=== PATIENT | female | born 1945 | race Caucasian/White ===

== ENCOUNTER 2020-12-04 17:56 | Inpatient (IN) | payer MEDICARE, MEDICAID ==
[~2020-12-04] VITALS: Ht 167.6 cm; Wt 57.1 kg
[~2020-12-04 17:56] MED LIST: AMIO200T68 PO; ASPI-1444 PO; ATOR20TA86 PO; CALC-840 PO; DOCU-275 PO; FURO40 PO; LEVO75 PO; LOSA25TA21 PO; METO25 PO; PANT-31 PO; POTA20TA83 PO; SPIR25 PO; THIA100T80 PO
[2020-12-04 19:57] LABS: BASOPHILS % (AUTO) 0.9 % (0.0-2.0); EOSINOPHILS % (AUTO) 0.7 % (1.0-6.0); HEMATOCRIT 35.3 % (36-46); HEMOGLOBIN 11.5 g/dL (12.0-16.0); LYMPHOCYTES # (AUTO) 0.9 K/uL (1.0-4.8); LYMPHOCYTES % (AUTO) 11.2 % (22.0-44.0); MEAN CORPUSCULAR HEMOGLOBIN 30.1 pg (26.0-34.0); MEAN CORPUSCULAR HGB CONC 32.4 G/dL (31.0-37.0); MEAN CORPUSCULAR VOLUME 93 fL (80-100); MONOCYTES # (AUTO) 0.4 K/uL (0.1-1.0); NEUTROPHILS # (AUTO) 6.9 K/uL (1.8-7.7); NEUTROPHILS % (AUTO) 82.2 % (40.0-70.0); PLATELET COUNT (AUTO) 328 K/uL (150-450); RED CELL DISTRIBUTION WIDTH 17.1 % (11.5-14.5)
[2020-12-04 20:06] LABS: ANION GAP 13 mmol/L (8-16); CALCIUM, TOTAL 8.9 mg/dL (8.8-10.5); CARBON DIOXIDE 24 mmol/L (22-29); CHLORIDE 104 mmol/L (98-107); CREATININE 0.73 mg/dL (0.60-1.30); GLOMERULAR FILTR. RATE CALC > 60 mL/min (>60); GLUCOSE,RANDOM 100 mg/dL (70-110); POTASSIUM 3.9 mmol/L (3.5-5.1); SODIUM SERUM 141 mmol/L (136-145); UREA NITROGEN, BLOOD 11 mg/dL (7-18)
[2020-12-04 20:13] LABS: ALANINE AMINOTRANSFERASE 12 U/L (12-78); ALBUMIN 3.8 g/dL (3.4-5.0); ALKALINE PHOSPHATASE 69 U/L (46-116); ASPARTATE AMINOTRANSFERASE 14 U/L (15-37); BILIRUBIN,TOTAL 0.3 mg/dL (0.1-1.0); CREATINE KINASE, TOTAL ONLY 60 U/L (26-192); TOTAL PROTEIN, SERUM 7.3 g/dL (6.4-8.2)
[2020-12-04 20:23] LABS: B-TYPE NATRIURETIC PEPTIDE 284 pg/mL (0-100)
[2020-12-04] MEDS ORDERED: LORazepam 2 MG TABLET PO PRN (20:45)
[2020-12-04] MEDS ORDERED: ACETAMINOPHEN 325 MG TABLET PO PRN (20:45)
[2020-12-04] MEDS ORDERED: ONDANSETRON HCL 4 MG/2 ML VIAL IVP PRN (20:45)
[2020-12-04 21:23] LABS: COVID AG,FIA SOURCE NASOPHARYNGEAL
[2020-12-04 22:12] LABS: APPEARANCE,URINE CLEAR (CLEAR); BILIRUBIN,URINE NEGATIVE (NEGATIVE); GLUCOSE, URINE (UA) NEGATIVE (NEGATIVE); KETONES,URINE NEGATIVE (NEGATIVE); LEUKOCYTE ESTERASE ,URINE NEGATIVE (NEGATIVE); OCCULT BLOOD,URINE NEGATIVE (NEGATIVE); PROTEIN,URINE NEGATIVE (NEGATIVE); UROBILINOGEN,URINE 0.2 mg/dL (<=1.0)
[2020-12-04 22:21] LABS: NITRATE,URINE POSITIVE (NEGATIVE)
[2020-12-04 22:22] LABS: BACTERIA,URINE Many /HPF (None Seen); RBC,URINE 0-2 /HPF (0-2); SQUAMOUS EPITHELIAL CELL,UR Few /LPF (None Seen); WBC,URINE 0-2 /HPF (0-5)
[2020-12-04 22:28] LABS: THYROID STIMULATING HORMONE 13.64 uIU/mL (0.36-3.74)
[2020-12-04] MEDS ORDERED: SODIUM CHLORIDE 0.9% 100 ML ONE (22:53)
[2020-12-04] MEDS ORDERED: IOVERSOL 350 MG/ML 100 ML VIAL ONE (22:53)
[2020-12-04] MEDS ORDERED: HEPARIN SODIUM,PORCINE 5,000 UNITS/ML VIAL IVP PRN ×2 (23:45)
[2020-12-04] MEDS ORDERED: HEPARIN SODIUM,PORCINE 5,000 UNITS/ML VIAL IVP ONE (23:45)
[2020-12-04 23:48] VITALS: BP 162/75
[2020-12-05] VITALS (7 sets, daily range): BP systolic 102–153; BP diastolic 51–76
[2020-12-05] MEDS ORDERED: HEPARIN SODIUM,PORCINE 5,000 UNITS/ML VIAL SQ SCH
[2020-12-05] MEDS: HEPARIN SODIUM 25000 UNITS/D5W 250 ML IV PRN ×2 (00:35→22:52)
[2020-12-05 00:37] LABS: BASOPHILS % (AUTO) 0.5 % (0.0-2.0); EOSINOPHILS % (AUTO) 0.3 % (1.0-6.0); HEMATOCRIT 34.8 % (36-46); HEMOGLOBIN 11.4 g/dL (12.0-16.0); LYMPHOCYTES # (AUTO) 0.9 K/uL (1.0-4.8); LYMPHOCYTES % (AUTO) 12.5 % (22.0-44.0); MEAN CORPUSCULAR HGB CONC 32.7 G/dL (31.0-37.0); MEAN CORPUSCULAR VOLUME 92 fL (80-100); MONOCYTES # (AUTO) 0.3 K/uL (0.1-1.0); MONOCYTES % (AUTO) 4.5 % (2.0-9.0); NEUTROPHILS # (AUTO) 6.2 K/uL (1.8-7.7); NEUTROPHILS % (AUTO) 82.2 % (40.0-70.0); PLATELET COUNT (AUTO) 320 K/uL (150-450); RED BLOOD CELL COUNT(AUTO) 3.79 MIL/uL (4.00-5.20); RED CELL DISTRIBUTION WIDTH 17.3 % (11.5-14.5)
[2020-12-05 02:32] LABS: INR 1.1 (0.9-1.1); PROTHROMBIN TIME 11.7 SEC (9.4-11.6)
[2020-12-05] MEDS: LEVOTHYROXINE SODIUM 75 MCG TABLET PO SCH (06:12)
[2020-12-05] MEDS: PANTOPRAZOLE SODIUM 40 MG DR TABLET PO SCH (06:15)
[2020-12-05] MEDS ORDERED: LORazepam 2 MG TABLET PO PRN (07:00)
[2020-12-05 07:23] LABS: BASOPHILS % (AUTO) 0.8 % (0.0-2.0); EOSINOPHILS % (AUTO) 0.4 % (1.0-6.0); HEMATOCRIT 36.2 % (36-46); HEMOGLOBIN 11.8 g/dL (12.0-16.0); LYMPHOCYTES # (AUTO) 1.2 K/uL (1.0-4.8); LYMPHOCYTES % (AUTO) 16.5 % (22.0-44.0); MEAN CORPUSCULAR HEMOGLOBIN 30.1 pg (26.0-34.0); MEAN CORPUSCULAR HGB CONC 32.5 G/dL (31.0-37.0); MEAN CORPUSCULAR VOLUME 93 fL (80-100); MONOCYTES # (AUTO) 0.5 K/uL (0.1-1.0); MONOCYTES % (AUTO) 7.3 % (2.0-9.0); NEUTROPHILS # (AUTO) 5.5 K/uL (1.8-7.7); PLATELET COUNT (AUTO) 332 K/uL (150-450); RED BLOOD CELL COUNT(AUTO) 3.91 MIL/uL (4.00-5.20); RED CELL DISTRIBUTION WIDTH 17.3 % (11.5-14.5)
[2020-12-05] MEDS: FUROSEMIDE 40 MG TABLET PO SCH ×2 (08:23→23:00)
[2020-12-05] MEDS: AMIODARONE HCL 200 MG TABLET PO SCH (08:23)
[2020-12-05] MEDS: METOPROLOL TARTRATE 25 MG TABLET PO SCH (08:23)
[2020-12-05] MEDS: THIAMINE 100 MG TABLET PO SCH (08:23)
[2020-12-05] MEDS: LORazepam 2 MG TABLET PO SCH ×4 (08:23→23:00)
[2020-12-05] MEDS: SPIRONOLACTONE 25 MG TABLET PO SCH ×2 (08:23→23:00)
[2020-12-05] MEDS: POTASSIUM CHLORIDE 20 MEQ ER TABLET PO SCH (08:24)
[2020-12-05] MEDS: CALCIUM OYSTER SHELL 250 MG-VIT D3 125 UNITS TABLET PO SCH ×3 (08:24→22:59)
[2020-12-05] MEDS: DOCUSATE SODIUM 100 MG CAPSULE PO SCH ×2 (08:25→21:00)
[2020-12-05] MEDS ORDERED: ASPIRIN 81 MG DR TABLET PO SCH (09:00)
[2020-12-05] MEDS: LOSARTAN POTASSIUM 25 MG TABLET PO SCH ×2 (09:26→23:00)
[2020-12-05] MEDS ORDERED: APIXABAN 5 MG TABLET PO SCH (10:45)
[2020-12-05] MEDS: ATORVASTATIN CALCIUM 20 MG TABLET PO SCH (22:59)
[2020-12-06] VITALS (7 sets, daily range): BP systolic 128–156; BP diastolic 52–72
[2020-12-06] MEDS: PANTOPRAZOLE SODIUM 40 MG DR TABLET PO SCH (06:30)
[2020-12-06] MEDS: LEVOTHYROXINE SODIUM 75 MCG TABLET PO SCH (06:30)
[2020-12-06] MEDS: THIAMINE 100 MG TABLET PO SCH (08:02)
[2020-12-06] MEDS: MULTIVITAMINS WITH MINERALS, THERAPEUTIC TABLET PO SCH (08:02)
[2020-12-06] MEDS: AMIODARONE HCL 200 MG TABLET PO SCH (08:03)
[2020-12-06] MEDS: LOSARTAN POTASSIUM 25 MG TABLET PO SCH ×2 (08:03→21:38)
[2020-12-06] MEDS: METOPROLOL TARTRATE 25 MG TABLET PO SCH (08:03)
[2020-12-06] MEDS: FUROSEMIDE 40 MG TABLET PO SCH ×2 (08:03→21:36)
[2020-12-06] MEDS: POTASSIUM CHLORIDE 20 MEQ ER TABLET PO SCH (08:03)
[2020-12-06] MEDS: SPIRONOLACTONE 25 MG TABLET PO SCH ×2 (08:04→21:37)
[2020-12-06] MEDS: CALCIUM OYSTER SHELL 250 MG-VIT D3 125 UNITS TABLET PO SCH ×3 (08:04→21:35)
[2020-12-06] MEDS: DOCUSATE SODIUM 100 MG CAPSULE PO SCH ×2 (08:04→21:35)
[2020-12-06] MEDS: LORazepam 2 MG TABLET PO SCH ×4 (08:04→21:36)
[2020-12-06] MEDS ORDERED: MIDAZOLAM HCL 2 MG/2 ML VIAL ONE (10:22)
[2020-12-06] MEDS ORDERED: FentaNYL CITRATE PF 100 MCG/2 ML VIAL ONE (10:22)
[2020-12-06] MEDS ORDERED: APIXABAN 5 MG TABLET PO SCH (11:00)
[2020-12-06] MEDS ORDERED: SODIUM CHLORIDE 0.9% 1,000 ML ONE (11:17)
[2020-12-06] MEDS ORDERED: MIDAZOLAM HCL 2 MG/2 ML VIAL IVP ONE (11:30)
[2020-12-06] MEDS ORDERED: FentaNYL CITRATE PF 100 MCG/2 ML VIAL IVP ONE (11:30)
[2020-12-06] MEDS ORDERED: CefTRIAXone 1 GM/DEXTROSE 50 ML IV SCH (15:45)
[2020-12-06] MEDS ORDERED: SODIUM CHLORIDE 0.9% 250 ML IV ONE (16:25)
[2020-12-06] MEDS: ATORVASTATIN CALCIUM 20 MG TABLET PO SCH (21:36)
[2020-12-07 03:55] LABS: BASOPHILS % (AUTO) 0.8 % (0.0-2.0); EOSINOPHILS % (AUTO) 1.3 % (1.0-6.0); HEMATOCRIT 28.7 % (36-46); HEMOGLOBIN 9.2 g/dL (12.0-16.0); LYMPHOCYTES # (AUTO) 1.2 K/uL (1.0-4.8); LYMPHOCYTES % (AUTO) 17.3 % (22.0-44.0); MEAN CORPUSCULAR HEMOGLOBIN 29.9 pg (26.0-34.0); MEAN CORPUSCULAR HGB CONC 32.2 G/dL (31.0-37.0); MEAN CORPUSCULAR VOLUME 93 fL (80-100); MONOCYTES # (AUTO) 0.6 K/uL (0.1-1.0); MONOCYTES % (AUTO) 8.8 % (2.0-9.0); NEUTROPHILS # (AUTO) 5.1 K/uL (1.8-7.7); NEUTROPHILS % (AUTO) 71.8 % (40.0-70.0); PLATELET COUNT (AUTO) 281 K/uL (150-450); RED CELL DISTRIBUTION WIDTH 17.8 % (11.5-14.5)
[2020-12-07 04:04] VITALS: BP 107/58
[2020-12-07 04:11] LABS: ALANINE AMINOTRANSFERASE 10 U/L (12-78); ALBUMIN 3.1 g/dL (3.4-5.0); ALKALINE PHOSPHATASE 53 U/L (46-116); ANION GAP 9 mmol/L (8-16); ASPARTATE AMINOTRANSFERASE 8 U/L (15-37); BILIRUBIN,TOTAL 0.3 mg/dL (0.1-1.0); CALCIUM, TOTAL 8.6 mg/dL (8.8-10.5); CARBON DIOXIDE 28 mmol/L (22-29); CHLORIDE 105 mmol/L (98-107); CREATININE 0.75 mg/dL (0.60-1.30); GLUCOSE,RANDOM 121 mg/dL (70-110); POTASSIUM 3.5 mmol/L (3.5-5.1); SODIUM SERUM 142 mmol/L (136-145); TOTAL PROTEIN, SERUM 6.1 g/dL (6.4-8.2); UREA NITROGEN, BLOOD 16 mg/dL (7-18)
[2020-12-07 04:32] LABS: GLOMERULAR FILTR. RATE CALC > 60 mL/min (>60)
[2020-12-07] MEDS: PANTOPRAZOLE SODIUM 40 MG DR TABLET PO SCH (06:26)
[2020-12-07] MEDS: LEVOTHYROXINE SODIUM 75 MCG TABLET PO SCH (06:26)
[2020-12-07] MEDS ORDERED: LORazepam 1 MG TABLET PO PRN (07:00)
[2020-12-07 07:23] VITALS: BP 104/52
[2020-12-07] MEDS: HEPARIN SODIUM 25000 UNITS/D5W 250 ML IV PRN (08:43)
[2020-12-07] MEDS: SPIRONOLACTONE 25 MG TABLET PO SCH (09:00)
[2020-12-07] MEDS: METOPROLOL TARTRATE 25 MG TABLET PO SCH (09:00)
[2020-12-07] MEDS: LOSARTAN POTASSIUM 25 MG TABLET PO SCH (09:00)
[2020-12-07] MEDS: LORazepam 1 MG TABLET PO SCH ×2 (09:22→14:02)
[2020-12-07] MEDS: CALCIUM OYSTER SHELL 250 MG-VIT D3 125 UNITS TABLET PO SCH (09:22)
[2020-12-07] MEDS: DOCUSATE SODIUM 100 MG CAPSULE PO SCH (09:22)
[2020-12-07] MEDS: MULTIVITAMINS WITH MINERALS, THERAPEUTIC TABLET PO SCH (09:22)
[2020-12-07] MEDS: AMIODARONE HCL 200 MG TABLET PO SCH (09:22)
[2020-12-07] MEDS: THIAMINE 100 MG TABLET PO SCH (09:22)
[2020-12-07] MEDS: POTASSIUM CHLORIDE 20 MEQ ER TABLET PO SCH (09:22)
[2020-12-07] MEDS: FUROSEMIDE 40 MG TABLET PO SCH (09:22)
[2020-12-07] MEDS ORDERED: APIXABAN 5 MG TABLET PO ONE (13:30)
[2020-12-07] MEDS ORDERED: BACTDSB PO (13:33)
[2020-12-07] MEDS ORDERED: APIX5TAB PO (13:33)
[2020-12-08] MEDS ORDERED: LORazepam 1 MG TABLET PO PRN (07:00)
== END 2020-12-07 15:10 | disposition home or self-care (01) | DRG 175 ==
LOC: EMS 17:56 → 5S 20:42
PROVIDERS: ADMIT Internal Medicine; ATTEND Internal Medicine
PROC: 0BBC3ZX Excision of Right Upper Lung Lobe, Percutaneous Approach, Diagnostic (ICD-10-PCS; principal; 2020-12-05)
DX: I26.99 Other pulmonary embolism without acute cor pulmonale (principal); E43 Unspecified severe protein-calorie malnutrition; I50.22 Chronic systolic (congestive) heart failure; N39.0 Urinary tract infection, site not specified; J90 Pleural effusion, not elsewhere classified; F10.10 Alcohol abuse, uncomplicated; I11.0 Hypertensive heart disease with heart failure; E78.5 Hyperlipidemia, unspecified; R55 Syncope and collapse; F12.90 Cannabis use, unspecified, uncomplicated; E04.1 Nontoxic single thyroid nodule; E27.9 Disorder of adrenal gland, unspecified; Z20.822 Contact with and (suspected) exposure to COVID-19; Z86.74 Personal history of sudden cardiac arrest; Z91.19 Patient's noncompliance with other medical treatment and regimen; Z68.20 Body mass index [BMI] 20.0-20.9, adult; R91.8 Other nonspecific abnormal finding of lung field
CPT/HCPCS: 70450; 71275; 77012; 83036; 83735; 84439; 84443; 85379; 85730; 87070; 87086; 87101; 87206; 87426; 88305; 88321; 88342; 93005; 93306; 97161; 97530; 99291; G0480; J0696; J1644; J2250; J3010; J7030; J7050; 36415-L1; 36415-TC; 71045-TC

== ENCOUNTER → 2021-04-29 | Outpatient (CLI) | payer MEDICARE ==
[~2021-04-29] MED LIST changes: +APIX5TAB PO; +BACTDSB PO; +DOCU-270 PO; -DOCU-275 PO; +SPIR-37 PO; -SPIR25 PO
== END | disposition home or self-care (01) ==
LOC: RADMN 11:08
PROVIDERS: ATTEND Internal Medicine
DX: J98.11 Atelectasis (principal); I51.7 Cardiomegaly; R91.8 Other nonspecific abnormal finding of lung field; M47.814 Spondylosis without myelopathy or radiculopathy, thoracic region; I70.0 Atherosclerosis of aorta; J90 Pleural effusion, not elsewhere classified
CPT/HCPCS: 71046